=== PATIENT | female | born 1985 | race Caucasian/White ===

== ENCOUNTER → 2020-06-18 | Outpatient (CLI) | payer OTHER ==
[~2020-06-18] MED LIST: AMITRIPTYLINE H25 M3 PO; MEDROLDOSEPACK PO; TIZANIDINE HCL4 M1 PO
--- NOTE | 2020-07-09 14:22 | PAINCON ---
[address] [address] PAIN MANAGEMENT CONSULTATION Name: EDDIE BURLESON Room: [facility].#: [id number] Admission: 06/18/20 Attend Phys: Higinio Knapp MD Discharge: Date of : 81 Report #: [id number] THIS REPORT FOR: //name// cc: [facility] - Clinic physician unknown [facility] - [facility] physician unknown ~ THIS REPORT FOR: //name// CC: [facility] unknown Higinio Knapp [facility] DATE OF SERVICE: 06/18/2020 CHIEF COMPLAINT: Mid back and lower back pain. HISTORY: The patient is a 35-year-old female who has been referred to the Pain Clinic for evaluation. She has had pain and discomfort, which has been problematic since 11/2019. She has pain in the middle of her back. Notes that the pain continues to be stiffen after prolonged sitting or sometimes after lying down. She is not aware of anything that makes it significantly better. She describes it as a continuous, steady, constant, burning, aching, gnawing, throbbing discomfort. It can rise to the level of 8. It oftentimes is a 5/10. She initially noticed some problems, back in 2007. She did serve time in the [employer] in the . While in [place], she had some back problems. She has been told she had a bulging disk in the L4-L5 areas. This has been problematic off and on. She has undergone chiropractic treatment. She has undergone physical therapy. She has tried Tylenol and ibuprofen. She has been receiving monthly massages. Pain often times increases as the day goes on. She finds that sleep is somewhat poor. She has used trazodone to help. Feels that sometimes exercise has worsened and increased her discomfort. She has been trying yoga. She has used tramadol, hydrocodone, gabapentin, and Mobic. ALLERGIES: No known drug allergies. CURRENT MEDICATIONS: Generally none, but has used Tylenol and ibuprofen. PAST MEDICAL HISTORY: Emotional problems. PAST SURGICAL HISTORY: 2002, 2012, gastric bypass 2017. SOCIAL HISTORY: Works as a realtor. She is working at this juncture. REVIEW OF SYSTEMS: Generally good health, headaches, wears glasses, ringing in the ears, muscle weakness and joints, muscle pain, cramps, back pain, breast pain. NEUROLOGIC: Reoccurring headaches, lightheadedness, dizziness, [place] [address] PAIN MANAGEMENT CONSULTATION Name: EDDIE BURLESON Room: [facility]#: [id number] Admission: 06/18/20 Attend Phys: Higinio Knapp MD Discharge: Date of : 81 Report #: [id number] tingling sensation, depression, insomnia. LABORATORY DATA: No new laboratory values are available. The patient states she had her last MRI in 2016. PAIN CLINIC ASSESSMENT AND PQRS: 1. Height 5 feet 5 inches, weight 139 pounds, BMI is 23. 2. Vital signs: Blood pressure 196/62, heart rate 87, respiratory rate 16, room air saturation 96%, and temperature 97.9. 3. Pain intensity 5/10. 4. Fall history: The patient has not fallen in the last 3 months. 5. Blood thinner. The patient is not on a blood thinning medication. 6. Hypertension. The patient is not being treated for hypertension. 7. Opioids greater than 6 weeks. The patient is not on opioid regimen. 8. Risk assessment tool, low for opioid use. 9. Functional assessment tool reviewed. 10. Recreational drug use. The patient denies. 11. Tobacco: The patient denies. 12. Alcohol: The patient denies frequent use of alcoholic beverages. PHYSICAL EXAMINATION: GENERAL: The patient is a well-developed, well-nourished white female. Appears her stated age. She is alert and oriented x 3. Her affect is appropriate. Speech is fluent. HEENT: Normocephalic, atraumatic. Extraocular eye muscles intact. Sclerae nonicteric. Mucous membranes are moist. NECK: Without adenopathy or JVD. HEART: Regular rate. LUNGS: Clear. ABDOMEN: Nontender. MUSCULOSKELETAL: Upper extremity muscle strength judged to be 5/5 for the major muscle groups in the upper extremity. The patient has some pain and muscle soreness in the midline area below the bra and down into the lumbar area. Palpation in the rhomboid area, left and right, and midline area in the paraspinous areas are somewhat tender to palpation. The patient is able forward bend to 90 degrees with some soreness in the back, left and right lateral bending noted some stiffness. Lumbar extension, some generalized stiffness, left and right lateral rotation, some mid back discomfort. Deep tendon reflexes in the arms are +1 bilaterally in the biceps, decreased for the brachioradialis and the triceps. Anterior and posterior spring tests are negative. Deep tendon reflexes +1 at the knees bilaterally and ankle reflexes. No significant sensory changes in the upper or lower dermatomal distributions. IMPRESSION: Myofascial pain. RECOMMENDATION: The patient will return to the Pain Clinic, [place] [address] PAIN MANAGEMENT CONSULTATION Name: EDDIE BURLESON Room: [facility]#: [id number] Admission: 06/18/20 Attend Phys: Higinio Knapp MD Discharge: Date of : 81 Report #: [id number] trigger points will be sought. Trigger points will be injected. We will consider the use of Elavil at bedtime to help with pain as well as to improve sleep. We would like to thank you for letting us participate in her care. We hope she continues to improve. <ELECTRONICALLY SIGNED> By: Higinio Knapp MD 07/09/20 1422 [id number]. Devang Knapp MD /nt
== END ==
LOC: M.PC 11:30
PROVIDERS: ATTEND Anesthesiology Pain Medicine
DX: M54.5 Low back pain (principal); M79.18 Myalgia, other site; Z68.23 Body mass index [BMI] 23.0-23.9, adult; Z79.899 Other long term (current) drug therapy

== ENCOUNTER → 2020-10-24 | Outpatient (CLI) | payer OTHER ==
[~2020-10-24] MED LIST changes: +TRAMADOL 50 MG50 MG PO
== END ==
LOC: M.PC 09:50
PROVIDERS: ATTEND Anesthesiology Pain Medicine
DX: M54.5 Low back pain (principal)

== ENCOUNTER → 2021-05-01 | Outpatient (CLI) | payer OTHER | END | disposition home or self-care (01) | LOC: M.PC 11:56 | PROVIDERS: ATTEND Anesthesiology Pain Medicine | DX: M54.16 Radiculopathy, lumbar region (principal); G89.29 Other chronic pain; Z98.890 Other specified postprocedural states; Z79.899 Other long term (current) drug therapy; Z20.822 Contact with and (suspected) exposure to COVID-19; Z98.84 Bariatric surgery status ==

== ENCOUNTER → 2021-05-29 | Outpatient (CLI) | payer OTHER ==
[~2021-05-29] MED LIST changes: +BUTRANS1 EACH INTRADERM; +GEODON20 MG PO
== END ==
LOC: M.PC 08:33
PROVIDERS: ATTEND Anesthesiology Pain Medicine
DX: M54.16 Radiculopathy, lumbar region (principal); G89.29 Other chronic pain; Z86.16 Personal history of COVID-19

== ENCOUNTER → 2021-06-06 | Outpatient (CLI) | payer OTHER | LOC: M.MRI 11:00 | PROVIDERS: ATTEND Anesthesiology Pain Medicine | DX: M51.16 Intervertebral disc disorders with radiculopathy, lumbar region (principal); M47.26 Other spondylosis with radiculopathy, lumbar region ==